=== PATIENT | male | born 1975 | race Caucasian/White ===

== ENCOUNTER 2016-12-25 22:26 | Emergency (ER) | payer MEDICAID ==
[2016-12-25] MEDS ORDERED: Ketorolac INJ* 60 MG/2 ML VIAL IM ONE (23:31)
[2016-12-25] MEDS ORDERED: Dexamethasone TAB* 4 MG PO ONE (23:31)
[2016-12-25] MEDS ORDERED: Methocarbamol TAB* 500 MG PO ONE (23:31)
--- NOTE | 2016-12-26 01:07 | ED ---
Neck Pain - HPI Summary HPI Summary: 41F presents with neck pain on right side of neck for a week. He denies any injury. He occasionally gets a sharp pain down his right arm with some tingling. He denies any numbness. He states soma and flexeril were helping. He had vicodin which helped a little too. He denies any weakness. He states that depending on how he turns his head the pain increases. He denies any fever. He states pain is 6/10 currently. He has not seen his primary for this. He denies any history of neck pain. - History of Current Complaint Chief Complaint: EDNeckComplaint Stated Complaint: NECK/SHOULDER PAIN Time Seen by Provider: 12/25/16 23:21 Pain Intensity: 6 - Allergies/Home Medications Allergies/Adverse Reactions: Allergies Allergy/AdvReac Type Severity Reaction Status Date / Time Minocycline Allergy Rash Verified 12/25/16 22:43 PMH/Surg Hx/FS Hx/Imm Hx Endocrine/Hematology History: Denies: Hx Anticoagulant Therapy Cardiovascular History: Denies: Hx Myocardial Infarction Infectious Disease History: No Infectious Disease History: Denies: Traveled Outside the [place] in Last 30 Days - Family History Known Family History: Positive: Cardiac Disease - Social History Alcohol Use: Occasionally Substance Use Type: Reports: None Smoking Status (MU): Former Smoker Review of Systems Negative: Fever Negative: Chest Pain Negative: Shortness Of Breath Positive: Myalgia - neck pain All Other Systems Reviewed And Are Negative: Yes Physical Exam Triage Information Reviewed: Yes Vital Signs On Initial Exam: Initial Vitals Temp Pulse Resp BP Pulse Ox 97.9 F 112 18 123/87 95 12/25/16 22:43 12/25/16 22:43 12/25/16 22:43 12/25/16 22:43 12/25/16 22:43 Vital Signs Reviewed: Yes Appearance: Positive: Well-Appearing Skin: Positive: Warm, Dry Head/Face: Positive: Normal Head/Face Inspection Eyes: Positive: Normal, EOMI, VITA, Conjunctiva Clear ENT: Positive: Normal ENT inspection, Pharynx normal, TMs normal Respiratory/Lung Sounds: Positive: Clear to Auscultation, Breath Sounds Present Cardiovascular: Positive: Normal, RRR Musculoskeletal: Positive: Strength/ROM Intact - neck, Other - neg spurling, good pulses, tenderness across right side of back Neurological: Positive: Sensory/Motor Intact, Reflexes Intact - biceps Diagnostics - Vital Signs Vital Signs Temp Pulse Resp BP Pulse Ox 12/25/16 23:45 97.7 F 78 16 112/85 95 12/25/16 23:30 97 127/79 96 12/25/16 23:17 91 94 12/25/16 23:15 112/85 12/25/16 22:43 97.9 F 112 18 123/87 95 - Laboratory Lab Statement: Any lab studies that have been ordered have been reviewed, and results considered in the medical decision making process. - Radiology neck Xray Interpretation: No Acute Changes Radiology Interpretation Completed By: ED Physician Neck Course/Dx - Course Course Of Treatment: 41F presents with neck pain on right side of neck for a week. He denies any injury. He occasionally gets a sharp pain down his right arm with some tingling. He denies any numbness. He states soma and flexeril were helping. He had vicodin which helped a little too. He denies any weakness. He states that depending on how he turns his head the pain increases. He denies any fever. He states pain is 6/10 currently. He denies any history of neck pain. on exam tender on right side of neck across trapezius. good strength in upper extremity. neg spurling. xray read by me as normal. patient feeling some relief with robaxin and dexamethasone so will continue with such. patient understands and agrees with plan. - Diagnoses Differential Dx/HQI/PQRI: Positive: Cervical Fracture, Sprain, Strain Provider Diagnoses: Neck pain Discharge - Discharge Plan Condition: Good Disposition: HOME Prescriptions: Methocarbamol [Robaxin-750 MG TAB] 750 mg PO TID #15 tab Methylprednisolone [Medrol Dosepak 4 MG*] 4 mg PO .SEE REINA INSTRUCTION #1 packet Patient Education Materials: Cervical Strain (ED) Referrals: Pat Gayle MD [Primary Care Provider] - [facility] [place] [facility] [Outside] Additional Instructions: Take muscle relaxers three times a day for 5 days Follow directions on steroid package Use ibuprofen or Tylenol for pain every 6 hours ice/heat area, move as much as possible Follow up with primary within 5 days Return to ED if develop any new or worsening symptoms
[2016-12-26 02:45] VITALS: BP 107/64
--- NOTE | 2016-12-26 07:59 | RAD ---
INDICATION: Neck pain. COMPARISON: There are no prior studies available for comparison. TECHNIQUE: 5 views of the cervical spine were obtained including lateral, oblique, AP, open-mouth odontoid views. FINDINGS: C1-C7 are visualized. The vertebra are in normal alignment. No prevertebral soft tissue swelling or fracture is seen. There is mild to moderate disc space narrowing and uncinate process spurring present at the C4-C5, C5-C6 and C6-C7 levels consistent with mild to moderate degenerative disc disease. Neural foramen appear patent on both sides. IMPRESSION: MILD TO MODERATE DEGENERATIVE DISC DISEASE.
== END 2016-12-26 01:45 | disposition home or self-care (01) ==
LOC: ED 22:26
DX: M54.2 Cervicalgia (principal)
CPT/HCPCS: 72050; 96372; 99282; A9270-GY; J1885; J8540